=== PATIENT | male | born 1960 | race Caucasian/White ===

== ENCOUNTER 2017-11-16 17:32 | Outpatient (REF) | payer SELFPAY ==
[2017-11-16 21:45] LABS: ALT 43 U/L (12-78); AST 32 U/L (15-37); Alkaline Phosphatase 71 U/L (46-116); Anion Gap 8.5 mmol/L (3-11); BUN 19 mg/dL (7-18); Bilirubin, Total 0.3 mg/dL (0.2-1.0); CO2 27.5 mmol/L (21.0-32.0); CREATININE 1.33 mg/dL (0.70-1.30); Calcium 8.5 mg/dL (8.5-10.1); Chloride 103 mmol/L (98-107); Cholesterol 230 mg/dL (50-200); Estimated GFR 55.23 (mL/min/1.73m2); Glucose 79 mg/dL (70-100); HDL Cholesterol 40 mg/dL (40-60); LDL CHOLESTEROL 168 mg/dL (<100); Potassium 4.2 mmol/L (3.5-5.1); Sodium 139 mmol/L (136-145); TSH (W/Ref FT4) 45.25 uIU/mL (0.358-3.74); Total Protein 7.5 g/dL (6.4-8.2); Triglyceride 177 mg/dL (30-150)
[2017-11-16 22:12] LABS: FREE T4 0.86 ng/dL (0.76-1.46)
== END 2017-11-16 17:52 ==
LOC: NCHCN 17:32
PROVIDERS: PCP Family Medicine; Visit Provider Family Medicine
DX: E03.9 Hypothyroidism, unspecified (principal); E78.5 Hyperlipidemia, unspecified; B18.2 Chronic viral hepatitis C
CPT/HCPCS: 80053; 80061; 83721; 84439; 84443

== ENCOUNTER 2018-09-11 15:26 | Outpatient (REF) | payer OTHER, SELFPAY ==
[2018-09-11 22:50] LABS: ALT 41 U/L (12-78); AST 34 U/L (15-37); Albumin 3.8 g/dL (3.4-5.0); Alkaline Phosphatase 64 U/L (46-116); Anion Gap 7.8 mmol/L (3-11); BUN 16 mg/dL (7-18); Bilirubin, Total 0.5 mg/dL (0.2-1.0); CO2 28.2 mmol/L (21.0-32.0); CREATININE 1.17 mg/dL (0.70-1.30); Calcium 8.4 mg/dL (8.5-10.1); Calculated LDL 124 mg/dL; Chloride 104 mmol/L (98-107); Cholesterol 189 mg/dL (50-200); Glucose 85 mg/dL (70-100); HDL Cholesterol 40 mg/dL (40-60); Potassium 4.2 mmol/L (3.5-5.1); Sodium 140 mmol/L (136-145); TSH 14.51 uIU/mL (0.36-3.74); Triglyceride 129 mg/dL (30-150)
== END 2018-09-11 15:46 ==
LOC: NCHCN 15:26
PROVIDERS: PCP Family Medicine; Visit Provider Family Medicine
DX: E03.9 Hypothyroidism, unspecified (principal); B18.2 Chronic viral hepatitis C; E78.5 Hyperlipidemia, unspecified
CPT/HCPCS: 80053; 80061; 83721; 84443

== ENCOUNTER 2018-11-29 18:03 | Outpatient (REF) | payer OTHER, SELFPAY ==
[2018-11-29 21:53] LABS: TSH 1.86 uIU/mL (0.36-3.74)
== END 2018-11-29 18:23 ==
LOC: NCHCN 18:03
PROVIDERS: PCP Family Medicine; Visit Provider Family Medicine
DX: E03.9 Hypothyroidism, unspecified (principal)
CPT/HCPCS: 84443